=== PATIENT | male | born 1945 | race Caucasian/White ===

== ENCOUNTER 2016-09-19 06:46 | Day surgery (SDC) | payer BC ==
[~2016-09-19] VITALS: Ht 165.1 cm; Wt 101.0 kg
[2016-09-19] VITALS (19 sets, daily range): BP systolic 108–134; BP diastolic 62–81; PULSE 64–86; RESP 13–24; Ht 165.1 cm; Wt 101.0 kg
[~2016-09-19 06:46] MED LIST: ASPI-535 PO; METH-70 PO
[2016-09-19 07:49] LABS: ADD SCAN DIFF NO; BASOPHILS % 0.4 % (0.0-2.0); EOSINOPHILS # 0.2 10^3/ul (0.0-0.5); EOSINOPHILS % 2.3 % (0.0-7.0); HEMATOCRIT 42.4 % (42.0-52.0); LYMPHOCYTES # 2.1 10^3/ul (0.8-2.9); LYMPHOCYTES % 22.1 % (15.0-51.0); MONOCYTE # 0.7 10^3/ul (0.3-0.9); MONOCYTES % 6.8 % (0.0-11.0); NEUTROPHIL # 6.5 10^3/ul (1.6-7.5); PLATELET COUNT 231 10^3/UL (140-415); RED BLOOD COUNT 4.51 10^6/ul (4.70-6.10); RED CELL DISTRIBUTION WIDTH 12.5 % (11.5-14.5); WHITE BLOOD COUNT 9.6 10^3/ul (4.8-10.8)
[2016-09-19 07:57] LABS: POTASSIUM 4.6 mmol/L (3.5-5.1)
[2016-09-19 07:59] LABS: INR 0.98
[2016-09-19 08:00] LABS: PARTIAL THROMBOPLASTIN TIME 30.3 Sec (25.0-35.0)
--- NOTE | 2016-09-19 08:01 | RADRPT ---
PROCEDURE: XR Chest. CLINICAL INDICATION: Preoperative evaluation prior to general anesthesia TECHNIQUE: Portable single view of the chest COMPARISON: 05/02/2013 FINDINGS: Mild cardiomegaly and median sternotomy wires are seen. Aortic tortuosity and calcification is seen . There are increased markings at the lung bases, left greater than right, which partially silhouet janel the cardiac borders. The lungs are otherwise clear and no pleural effusion is seen. The large l eft effusion seen previously has resolved. IMPRESSION: Left greater than right basilar opacities which may be due to prominent epicardial fat pad or residu a from prior pulmonary process such as infection but acute infection or underlying lung lesion canno t be excluded. On the prior study the left lung base was obscured by pleural effusion and the abnor mality on the right was not evident. CT could be obtained for further evaluation and is suggested. Results were called to the preoperative nurse caring for the patient, Racheal, at 09/19/2016 7:59:26 AM RPTAT: [facility] Physician Chula Date Time Electronically viewed and signed by Physician Chula on 09/19/2016 08:01 TONI/
[2016-09-19 08:02] LABS: CREATININE 0.9 mg/dl (0.61-1.24)
[2016-09-19] MEDS ORDERED: HEPARIN 1000 UNITS/ML 10 ML INJ ONE (08:51)
[2016-09-19] MEDS ORDERED: MIDAZOLAM 1 MG/ML 2 ML INJ ONE (08:51)
[2016-09-19] MEDS ORDERED: HEPARIN 1000 UNITS/NS (A-LINE) 1,000 ML ONE (08:51)
[2016-09-19] MEDS ORDERED: NITROGLYCERIN (IC) 100 MCG/ML INJ ONE (08:51)
[2016-09-19] MEDS ORDERED: VERAPAMIL 5 MG INJ ONE (08:51)
[2016-09-19] MEDS ORDERED: IODIXANOL LOCM 100 ML BTL ONE (08:51)
[2016-09-19] MEDS ORDERED: FENTAnyl 50 MCG/ML VIAL ONE (08:51)
[2016-09-19] MEDS ORDERED: LIDOCAINE 1% (MDV) 20 ML INJ ONE (08:51)
[2016-09-19] MEDS ORDERED: FAMOTIDINE 20 MG TAB PO ONE (09:00)
[2016-09-19] MEDS ORDERED: SOD CHLORIDE 0.45% 1,000 ML IV ONE (09:00)
[2016-09-19] MEDS ORDERED: DIAZEPAM 5 MG TAB PO ONE (09:00)
[2016-09-19] MEDS ORDERED: DIPHENHYDRAMINE 50 MG CAP PO ONE (09:00)
[2016-09-19] MEDS ORDERED: GABAPENTIN (09:07)
[2016-09-19] MEDS ORDERED: LISI20TA11 PO (09:07)
[2016-09-19] MEDS ORDERED: AMIO200T2 PO (09:07)
[2016-09-19] MEDS ORDERED: CARV6.2579 PO (09:07)
[2016-09-19] MEDS ORDERED: ATOR20TA38 PO (09:07)
[2016-09-19] MEDS ORDERED: TAMS-14 PO (09:35)
[2016-09-19] MEDS ORDERED: SOD CHLORIDE 0.9% 1,000 ML IV SCH (10:56)
[2016-09-19] MEDS ORDERED: morphine 2 MG INJ IV PRN (11:00)
[2016-09-19] MEDS ORDERED: AL HYDROX/MG HYDROX/SIMETH 30 ML CUP PO PRN (11:00)
[2016-09-19] MEDS ORDERED: ACETAMINOPHEN 325 MG TAB PO PRN ×2 (11:00→11:30)
[2016-09-19] MEDS ORDERED: ONDANSETRON 4 MG INJ IV PRN (11:00)
--- NOTE | 2016-09-19 11:49 | CARRPT ---
DATE OF PROCEDURE: 09/19/2016 TYPE OF PROCEDURE: 1. Left heart catheterization. 2. Coronary angiography. 3. Bypass graft angiography including SUAREZ arterial grafts. 4. Left ventriculogram. 5. Femoral angiography. ATTENDING PHYSICIAN: Candi Will MD REFERRING PHYSICIAN: Dr. Elias Johnson and Dr. Giorgio Liu TYPE OF ANESTHESIA: Conscious and local. BRIEF HISTORY: Mr. Naylor is a 71-year-old male with history of hypertension, dyslipidemia, lily nary artery disease, status post coronary bypass grafting x3 in 2012, who initially presented with c omplaints of dyspnea on exertion and ____preoperative state. The patient underwent cardiac stress t est revealing a multivessel ischemia in anterior and inferior distributions. Given these findings, the patient referred for and presents today in order to undergo left heart catheterization to assess for the possibility of significant obstructive coronary artery disease lending to his symptoms of s hortness of breath and positive stress test findings. PROCEDURE: After informed consent was obtained, the patient was brought to the [facility] cardiac catheterization lab where his right groin was prepped and draped in the usual steri le fashion. Lidocaine 2% was infiltrated into the right groin in order to achieve adequate anesthes ia. Using modified Seldinger technique, the right femoral artery was cannulated and a 6-Gabonese milka rial sheath was placed. A 6-Gabonese JL4 catheter was used to cannulate the left main coronary ostium . With contrast injection, multiple views of the left coronary arterial system were obtained. The JL4 was removed over a guidewire and a JR4 was used to cannulate the right coronary arterial ostium with contrast injection, multiple views of the right coronary arterial system were obtained. JR4 wa s then used to subsequently cannulate a stump, presumably to the diagonal vessel and no other grafts could be identified. Subsequently, the JR was then used to cannulate the SUAREZ arterial graft after which with contrast injection, multiple views of the SUAREZ arterial graft were obtained. It was the n used to inject the patient's left subclavian to assess for any stenosis, there was not and removed . At this time, we attempted an LCD to further search for any unidentified grafts and could not fin d. This was moved and a pigtail catheter was then passed into the LV and left ventricular end-diast olic pressure was measured. LV gram was obtained. The pigtail catheter was then pulled back acros s the aortic valve, placed in the ascending aorta and ascending aortography was performed to furthe r identify any grafts which could not be found. Subsequently, at this time, the pigtail was removed and we tried a multipurpose to identify the graft unsuccessfully and once again the LCD, and at thi s time we were finally able to find a distal stump through a second graft. Subsequently, at this ti me, after discussion with the family, it was elected to terminate this procedure. The patient under went right femoral arterial angiography revealing the sheath to be well placed in the right common f emoral artery, but due to an ectatic vessel, no closure device was used, the sheath was removed, man ual pressure was held until optimal hemostasis was achieved. There were no noted complications. FINDINGS: 1. Coronary angiography. Left main short 4 mm with a distal 50% stenosis. Circumflex proximally i s a 2.5 mm vessel and has an early branching obtuse marginal. Thereafter, the circuit is 100% occlu ded and can be seen to appear ____ a rather sizeable circumflex distribution via left to left collat eral circulation from the obtuse marginal and from a sizeable diagonal which is widely patent. The LAD proximally is a 2.5 mm vessel and has an ostial 40% stenosis and then becomes 100% occluded shor tly after takeoff of the diagonal. The diagonal itself is widely patent with a 40 to 50% stenosis a t its mid portion. It covers a large territory and then gives left to left collateral circulation to the patient's circumflex grade I. There is additionally a second diagonal 2 mm vessel with a mid -body 40% stenosis. It covers a reasonable territory, as well as a mid-body a 50% to 60% stenosis. The right coronary artery proximally is a 3.5 mm vessel, ectatic vessel and its mid portion contain s a 20% stenosis dominant vessel and gives off PDA. It has sluggish SHANEL 1 flow subtotally occluded at the ostium and enhanced areas in the mid portion, which appear to be subtotally occluded diffuse ly. It is a very large posterolateral branch 3 mm vessel which additionally provides right to left collateral circulation for ____recapitulation of the mid circumflex grade I. Bypass graft angiography revealed the 2 stumps extending from the saphenous vein graft to diagonal, saphenous vein graft to obtuse marginal and a widely patent SUAREZ arterial graft with excellent flow providing excellent flow to the mid LAD with retrograde flow back to the mid and proximal portions o f the LAD and with no intervening stenosis thereafter to the graft insertion site. Subclavian angiography revealed no significant stenoses of the patient's subclavian vessel. Aortic root angiography revealed the patient's [place] left and right vessels and no other identified bypass graft. Left ventriculogram revealed a preserved left ventricular ejection fraction of 55%. Left ventricula r end diastolic pressure of 14 to 16. No significant aortic stenosis by gradient. TOTAL FLUOROSCOPY TIME: 19.3 minutes. TOTAL CONTRAST: 330 mL. IMPRESSION: 1. Multivessel obstructive coronary artery disease involving 100% occlusion in the patient's [place] circumflex, ____ includes patient's [place] LAD and a 99% subtotal occlusion of the patient's PEA di ffusely. 2. Widely patent left internal mammary artery arteriograph to the LAD with [id number] and right-t o-left grade I collateral circulation recapitulating the patient's circumflex vessels. RECOMMENDATIONS: In light of procedure and findings at this time would: 1. Maximize medical management. 2. Aggressive risk factor reduction. 3. The patient will be reasonable to proceed with surgery at this time for hernia repair and have d iscussed with family if patient continues to have symptoms thereafter, can attempt to probe the rupinder ent's somewhat diffuse disease PDA chronically occluded. Prior bypass surgery and/or possibly ____ the patient's chronic total occlusion of the circumflex. Dictated By: CANDI LAI/HUNG Conf#: [id number] DID#: [id number]
--- NOTE | 2016-09-19 13:45 | RADRPT ---
Vent Rate: 77 bpm RR Interval: 0 msec NV Interval: 176 msec QRS Duration: 78 msec QT Interval: 426 msec QTC Interval: 482 msec P-R-T [place]: 61 - 29 - 82 degrees Normal sinus rhythm Nonspecific T wave abnormality Prolonged QT Abnormal ECG Electronically Signed By: Chadd Flower [id number]
== END 2016-09-19 17:00 | disposition home or self-care (01) ==
LOC: SDS 06:46
PROVIDERS: ATTEND Internal Medicine
DX: I25.10 Atherosclerotic heart disease of native coronary artery without angina pectoris (principal); I10 Essential (primary) hypertension; E78.5 Hyperlipidemia, unspecified; Z95.1 Presence of aortocoronary bypass graft
CPT/HCPCS: 71010; 80048; 82962; 85025; 85610; 85730; 93005; 93459; C1887; C1894; J1644; J2250; J3010; Q9967; Z7610

== ENCOUNTER 2018-04-12 21:10 | Inpatient (IN) | END 2018-04-15 19:49 | disposition home or self-care (01) | DRG 282 ==

== ENCOUNTER 2018-09-17 11:00 | Observation (INO) | payer MEDICARE, BC ==
[~2018-09-17] VITALS: Ht 162.6 cm; Wt 96.8 kg
[~2018-09-17 11:00] MED LIST changes: +AMIO200T4 PO; -ASPI-535 PO; +ASPI-817 PO; +ATOR20TA38 PO; +CARV6.2579 PO; +CLOP75TA27 PO; +GABAPENTIN; +LISI-471 PO; -METH-70 PO; +TAMS-14 PO
[2018-09-17] MEDS ORDERED: SOD CHLORIDE 0.9% 1,000 ML IV STA (11:05)
--- NOTE | 2018-09-17 13:43 | ERD ---
ER Documentation Chief Complaint Chief Complaint syncopal episode x "10 minutes" as per family; now a/o x 4. HPI During the patient's encounter translation services were utilized Language: Aremenian Source: Family in person 73-year-old gentleman history of coronary disease and CABG who presents to the emergency room with an episode of syncope via EMS. Accu-Chek normal. It appears he was sitting down and slumped over. The family reports for approximately 10 minutes without seizure-like activity. The patient had a spontaneous resolution. ROS All systems reviewed and are negative except as per history of present illness. Medications Home Meds Reported Medications Clopidogrel Bisulfate (Clopidogrel) 75 Mg Tablet, 75 MG PO DAILY, #30 TAB 04/15/18 Aspirin* (Aspirin* EC) 81 Mg Tablet.dr, 81 MG PO DAILY, TAB 04/15/18 Tamsulosin Hcl* (Flomax*) 0.4 Mg Cap.er.24h, 0.4 MG PO DAILY, CAP 09/19/16 Carvedilol* (Carvedilol*) 6.25 Mg Tablet, 6.25 MG PO BID, #60 TAB 09/19/16 [Gabapentin] No Conflict Check, 300 09/19/16 Atorvastatin Calcium* (Atorvastatin Calcium*) 20 Mg Tablet, 20 MG PO QHS, #30 TAB 09/19/16 Lisinopril* (Lisinopril*) 20 Mg Tablet, 20 MG PO DAILY, #30 TAB 09/19/16 Amiodarone Hcl* (Amiodarone Hcl*) 200 Mg Tablet, 200 MG PO DAILY, #30 TAB 09/19/16 Allergies Allergies: Coded Allergies: No Known Allergy (Unverified , 04/25/13) PMhx/Soc History of Surgery: Yes (CABG 2012) Anesthesia Reaction: No Hx Neurological Disorder: Yes (NEUROPATHY) Hx Respiratory Disorders: Yes (PNA 2012) Hx Cardiac Disorders: Yes (HTN, HLD) Hx Psychiatric Problems: No Hx Miscellaneous Medical Probl: Yes (FORGETFUL THE LAST YEAR) Hx Alcohol Use: Yes (SOCIAL) Hx Substance Use: No Hx Tobacco Use: No FmHx Family History: No diabetes Physical Exam Vitals Vital Signs Date Temp Pulse Resp B/P (MAP) Pulse Ox O2 O2 Flow FiO2 Time Delivery Rate 09/17/18 98.4 67 16 97/67 (77) 100 11:19 Physical Exam General: Well developed, well nourished, no acute distress Head: Normocephalic, atraumatic. Eyes: Pupils equally reactive, EOM intact ENT: Moist mucous membranes Neck: Supple, no lymphadenopathy Respiratory: Lungs clear bilaterally, no distress Cardiovascular: RRR, no murmurs, rubs, or gallops Abdominal: Soft, non-tender, non-distended, no peritoneal signs : Deferred MSK: No edema, no unilateral swelling, 5/5 strength Neurologic: Alert and oriented, moving all extremities, normal speech, no focal weakness, no cerebellar signs Skin: No rash Psych: Normal mood Result Diagram: 09/17/18 1116 09/17/18 1116 Results 24 hrs Laboratory Tests Test 09/17/18 11:16 09/17/18 11:35 White Blood Count 10.0 10^3/ul Red Blood Count 4.34 10^6/ul Hemoglobin 13.4 g/dl Hematocrit 40.4 % Mean Corpuscular Volume 93.1 fl Mean Corpuscular Hemoglobin 30.9 pg Mean Corpuscular Hemoglobin Concent 33.2 g/dl Red Cell Distribution Width 12.7 % Platelet Count 195 10^3/UL Mean Platelet Volume 10.1 fl Immature Granulocytes % 0.300 % Neutrophils % 59.8 % Lymphocytes % 28.3 % Monocytes % 8.8 % Eosinophils % 2.2 % Basophils % 0.6 % Nucleated Red Blood Cells % 0.0 /100WBC Immature Granulocytes # 0.030 10^3/ul Neutrophils # 6.0 10^3/ul Lymphocytes # 2.8 10^3/ul Monocytes # 0.9 10^3/ul Eosinophils # 0.2 10^3/ul Basophils # 0.1 10^3/ul Nucleated Red Blood Cells # 0.0 10^3/ul Prothrombin Time 13.3 Sec Prothrombin Time Ratio 1.0 INR International Normalized Ratio 1.00 Activated Partial Thromboplast Time 28.1 Sec Sodium Level 140 mmol/L Potassium Level 4.5 mmol/L Chloride Level 108 mmol/L Carbon Dioxide Level 25 mmol/L Anion Gap 7 Blood Urea Nitrogen 15 mg/dl Creatinine 0.96 mg/dl Est Glomerular Filtrat Rate mL/min mL/min Glucose Level 133 mg/dl Calcium Level 8.8 mg/dl Magnesium Level 1.9 mg/dl Troponin I < 0.012 ng/ml Bedside Glucose 110 mg/dL Current Medications Medications Dose Sig/Dayna Start Time Status Last (Trade) Ordered Route PRN Stop Time Admin Dose Reason Admin Sodium 1,000 ml @ Q1H STAT 09/17/18 DC 09/17/18 Chloride 1,000 mls/hr IV 11:05 09/17/18 11:22 12:04 Ondansetron 4 mg ER BRIDGE 09/17/18 HCl (Zofran PRN IV 14:00 09/18/18 Inj) NAUSEA/VOMITI 13:59 NG 650 mg ER BRIDGE 09/17/18 Acetaminophen PRN PO 14:00 09/18/18 (Tylenol .MILD PAIN 13:59 Tab) 1-3 OR TEMP Procedures/MDM EKG, MONITORS, & DIAGNOSTIC IMAGING: EKG: I reviewed and interpreted a 12-lead EKG. Rhythm: Normal sinus rhythm ST Changes: Subtle ST depressions in V4 through V6 without reciprocal changes T waves: No contiguous T wave inversions Impression: Abnormal EKG Chest x-ray: I reviewed and interpreted a 1 view of the chest Mediastinum: No enlargement Cardiac silhouette: No cardiomegaly Airspace: Clear lung ramirez bilaterally without evidence of pneumothorax Bones: No evidence of fracture LAB INTERPRETATION: I reviewed the laboratory testing and it shows no evidence of acute process MEDICAL DECISION MAKING: Patient presents with a syncopal episode. Broad differential exists but given cardiac history concern for possible cardiac arrhythmia. Low concern for ACS. The patient does have an abnormal EKG. Patient will benefit from inpatient hospitalization and further observation given his risk profile. Patient has a much lower clinical concern for infectious process. The patient's blood pressure is borderline low but improved with IV fluids. No evidence of fever or elevated white count to suggest infectious process. No abdominal pain or back pain to suggest dissection or aneurysm. ER COURSE: * Blood pressure improved with IV fluids. Aspirin provided. The patient remai ns asymptomatic and using his cellular phone without difficulty. CONSULTATION: None DISPOSITION PLAN: Telemetry admission for management of chest pain to rule out acute coronary syndrome, serial enzymes, risk stratification and consideration of provocative testing CONSULTATION: Accepting care team and consultations: I discussed the current laboratory data, diagnostic imaging and emergency care provided. Admitting team: Dr. Liu Admitting team indication: Insurance directed Departure Diagnosis: Primary Impression: Syncope Syncope type: unspecified Qualified Codes: R55 - Syncope and collapse Additional Impression: History of coronary artery disease Condition: Stable CHOLO MAYFIELD MD Sep 17, 2018 13:43
[2018-09-17] MEDS ORDERED: ACETAMINOPHEN 325 MG TAB PO PRN (14:00)
[2018-09-17] MEDS ORDERED: ONDANSETRON 4 MG INJ IV PRN (14:00)
[2018-09-17] MEDS ORDERED: LISI40TA3 ORAL (14:15)
[2018-09-17] MEDS ORDERED: ISOS120T15 ORAL (14:15)
[2018-09-17] MEDS ORDERED: GABA300C16 ORAL (14:15)
[2018-09-17] MEDS ORDERED: ATOR20TA65 ORAL (14:15)
[2018-09-17] MEDS ORDERED: CARV12.579 ORAL (14:15)
[2018-09-17 15:14] VITALS: Ht 162.6 cm; Wt 96.8 kg
[2018-09-17 16:24] VITALS: PULSE 70
[2018-09-17 17:07] VITALS: BP 108/63; PULSE 68; RESP 22
[2018-09-17 18:20] VITALS: BP_SYST 118; BP_SYST 124; BP_SYST 133; BP_DIAS 55; BP_DIAS 60; BP_DIAS 66
[2018-09-17] MEDS ORDERED: SOD CHLORIDE 0.9% 500 ML IV ONE (19:30)
[2018-09-17 19:35] VITALS: BP 108/54; PULSE 72; RESP 22
[2018-09-17 20:00] VITALS: PULSE 79
[2018-09-17] MEDS: ATORVASTATIN 20 MG TAB PO SCH (20:46)
[2018-09-17] MEDS: TAMSULOSIN (SR) 0.4 MG CAP PO SCH (20:46)
[2018-09-17] MEDS: GABAPENTIN 300 MG CAP PO SCH (20:47)
[2018-09-17 23:48] VITALS: BP 111/55; PULSE 75; RESP 22
[2018-09-18] VITALS (12 sets, daily range): BP systolic 123–173; BP diastolic 60–95; PULSE 61–78; RESP 18–22
--- NOTE | 2018-09-18 00:11 | HP ---
DATE OF ADMISSION: 09/17/2018 CHIEF COMPLAINT: Presyncope. HISTORY OF PRESENT ILLNESS: The patient is a 73-year-old gentleman with history of coronary artery d isease, non-STEMI, status post PCI to PDA, hypertension, dyslipidemia. The patient has EF of 50% bas ed on echo done in 03/2018. The patient stated that he noted that his blood pressure was low and he felt slightly dizzy and possibly had presyncope. The patient is poor historian and in the ER, he rep orted that he actually had an episode of syncope and was brought in by EMS. As per ER record, the pa kin was sitting down and slumped over. There was no seizure-like activity. The patient returned t o his baseline quickly. However, the patient denies any actual loss of consciousness upon my questio hiram. The patient did not have any chest pain. No reported cough. No reported shortness of breath. No reported resting leg pain. No reported fever or chills. The patient denies cough. The patient denies vomiting or abdominal pain noted. The patient denies any fever or chills. Denies any focal weakness. REVIEW OF SYSTEMS: A total of 12 systems were reviewed. All pertinent positive and negative finding s have been described in HPI. Rest of review of systems were unremarkable. The patient was seen in the ER and underwent chest x-ray which was unremarkable. Upon arrival to the floor, I requested nursing staff to take vital signs. The patient was orthostatic. Vital signs in the ER at the time of presentation his BP was only 97/67. The patient has been on multiple antihyper tensive medications. The patient did not look septic. White count was normal. There was no left sh ift. The patient is being admitted for evaluation and management. PAST MEDICAL HISTORY: As stated above. PAST SURGICAL HISTORY: The patient is status post CABG in 2012. FAMILY HISTORY: Positive for heart disease. SOCIAL HISTORY: Ex-smoker and also drinks alcohol occasionally. PHYSICAL EXAMINATION: GENERAL: Revealed the patient to be awake, alert, fairly oriented. VITAL SIGNS: In the ER, blood pressure 97/67, pulse 67, respirations 16, temperature 98.4, O2 sat is 100% on room air. HEENT: Atraumatic, normocephalic. Conjunctivae and lids are normal. Oropharynx is clear. NECK: Supple. No mass, thyromegaly. No carotid bruit. CHEST: Fairly clear. CARDIOVASCULAR: S1, S2 normal. No murmur. ABDOMEN: Soft, nondistended, nontender. Bowel sounds are present. EXTREMITIES: No leg edema. NEUROLOGIC: The patient is awake, alert, fairly oriented with no gross focal deficit. LABORATORY DATA: Done in the ER, WBC 10, hemoglobin 13.4, platelet 195. Sodium 140, potassium 4.5, BUN 15, creatinine 0.9, glucose 133. Magnesium 1.9. Troponin negative. IMPRESSION: 1. Presyncope. 2. Coronary artery disease, status post PCI as described above. 3. History of hypertension, currently blood pressures are normal. 4. Dyslipidemia. 5. Benign prostatic hypertrophy. PLAN: The patient will be admitted under observation on telemetry floor. I asked the nurse to do or thostatic which was positive. The patient will be given 500 mL of NS bolus. In addition, the patien t will be continued on amiodarone which he was taking. Apparently, he had some history of arrhythmia , although details are not available. I will also add aspirin and Plavix. I am not sure why his med ication reconciliation did not indicate that he was on both antiplatelet agent since his PCI was back in 03/2018. Dyslipidemia, continue statin. Hypertension. The patient's blood pressure is low norm al and is orthostatic. We will reduce dose of Imdur, carvedilol and lisinopril. We will continue to monitor vital signs closely. We will obtain carotid Doppler. A cardiology consult from Dr. Will ' group will be obtained. The patient is status post CABG. The patient denied any anginal pain or d iaphoresis. We will continue to follow closely. Further recommendations will depend upon patient's hospital course. Dictated By: KAL GERMAN/HUNG Conf#: [id number] DID#: [id number]
[2018-09-18] MEDS ORDERED: LISINOPRIL 20 MG TAB PO SCH (09:00)
[2018-09-18] MEDS: CLOPIDOGREL 75 MG TAB PO SCH (09:02)
[2018-09-18] MEDS: GABAPENTIN 300 MG CAP PO SCH ×3 (09:03→20:04)
[2018-09-18] MEDS: ISOSORBIDE MONONITRATE(SR)30 MG TAB PO SCH (09:03)
[2018-09-18] MEDS: AMIODARONE 200 MG TAB PO SCH (09:03)
[2018-09-18] MEDS: ASPIRIN (EC) 81 MG TAB PO SCH (09:03)
--- NOTE | 2018-09-18 12:19 | PN ---
Date/Time of Note Date/Time of Note DATE: 09/18/18 TIME: 12:18 Assessment/Plan VTE Prophylaxis Risk score (from Nsg)>0 risk: 7 SCD applied (from Nsg): No Lines/Catheters IV Catheter Type (from Nrsg): Saline Lock Urinary Cath still in place: No Assessment/Plan Assessment/Plan 1. Presyncope. - per cardio - Carotid doppler is wnl - pending cardio eval 2. Coronary artery disease, status post PCI as described above. 3. History of hypertension, currently blood pressures are normal. 4. Dyslipidemia. 5. Benign prostatic hypertrophy. Result Diagram: 09/17/18 1116 09/17/18 1116 Subjective 24 Hr Interval Summary Free Text/Dictation - Carotid doppler is wnl Exam/Review of Systems Exam Vitals Vital Signs Date Temp Pulse Resp B/P (MAP) Pulse Ox O2 O2 Flow FiO2 Time Delivery Rate 09/18/18 71 12:05 09/18/18 98.0 18 143/75 98 11:12 (97) 09/17/18 Nasal 14:40 Cannula Intake and Output 09/17/18 09/17/18 09/18/18 1414:59 22:59 06:59 IntakeIntake Total 980 ml 300 ml BalanceBalance 980 ml 300 ml Medications Medication Current Medications Amiodarone HCl (Cordarone) 200 mg DAILY PO Last administered on 09/18/18at 09:03; Admin Dose 200 MG; Start 09/18/18 at 09:00 Atorvastatin Calcium (Lipitor) 40 mg HS PO Last administered on 09/17/18at 20:46; Admin Dose 40 MG; Start 09/17/18 at 21:00 Carvedilol (Coreg) 6.25 mg BID PO Last administered on 09/18/18at 09:04; Admin Dose 6.25 MG; Start 09/17/18 at 21:00 Gabapentin (Neurontin) 300 mg TID PO Last administered on 09/18/18 09:03; Admin Dose 300 MG; Start 09/17/18 at 21:00 Isosorbide Mononitrate (Imdur) 30 mg DAILY PO Last administered on 09/18/18 09:03; Admin Dose 30 MG; Start 09/18/18 at 09:00 Lisinopril (Zestril) 20 mg DAILY PO Last administered on 09/18/18 09:03; Admin Dose 20 MG; Start 09/18/18 at 09:00 Tamsulosin HCl (Flomax) 0.4 mg HS PO Last administered on 09/17/18 20:46; Admin Dose 0.4 MG; Start 09/17/18 at 21:00 Aspirin (Halfprin) 81 mg DAILY PO Last administered on 09/18/18 09:03; Admin Dose 81 MG; Start 09/18/18 at 09:00 Clopidogrel Bisulfate (plaVIX) 75 mg DAILY PO Last administered on 09/18/18 09:02; Admin Dose 75 MG; Start 09/18/18 at 09:00 SILVERIO YOUNG Sep 18, 2018 12:19
--- NOTE | 2018-09-18 13:14 | CONS ---
Consultation Date/Type/Reason Admit Date/Time Sep 17, 2018 at 13:36 Type of Consult Cardiology Date/Time of Note DATE: 09/18/18 TIME: 13:11 Hx of Present Illness 73 yo w/ HTN, CAD, h/o arrhythmia - very difficult historian - will plan to r/o NV and monitor - if no tachy-remy, will consider outpt re-stratification. # [id number] Past Medical History Home Meds Reported Medications Atorvastatin Calcium (Atorvastatin Calcium) 20 Mg Tablet, 1 TAB ORAL HS 09/17/18 Isosorbide Mononitrate* (Isosorbide Mononitrate*) 120 Mg Tab.sr.24h, 1 TAB ORAL DAILY 09/17/18 Carvedilol* (Carvedilol*) 12.5 Mg Tablet, 1 TAB ORAL BID 09/17/18 Gabapentin* (Gabapentin*) 300 Mg Capsule, 300 MG ORAL TID 09/17/18 Lisinopril* (Lisinopril*) 40 Mg Tablet, 1 TAB ORAL DAILY 09/17/18 Tamsulosin Hcl* (Flomax*) 0.4 Mg Cap.er.24h, 0.4 MG PO DAILY, CAP 09/19/16 Amiodarone Hcl* (Amiodarone Hcl*) 200 Mg Tablet, 200 MG PO DAILY, #30 TAB 09/19/16 Discontinued Reported Medications Clopidogrel Bisulfate (Clopidogrel) 75 Mg Tablet, 75 MG PO DAILY, #30 TAB 04/15/18 Aspirin* (Aspirin* EC) 81 Mg Tablet.dr, 81 MG PO DAILY, TAB 04/15/18 Carvedilol* (Carvedilol*) 6.25 Mg Tablet, 6.25 MG PO BID, #60 TAB 09/19/16 [Gabapentin] No Conflict Check, 300 09/19/16 Atorvastatin Calcium* (Atorvastatin Calcium*) 20 Mg Tablet, 20 MG PO QHS, #30 TAB 09/19/16 Lisinopril* (Lisinopril*) 20 Mg Tablet, 20 MG PO DAILY, #30 TAB 09/19/16 Medications Current Medications Amiodarone HCl (Cordarone) 200 mg DAILY PO Last administered on 09/18/18at 09:03; Admin Dose 200 MG; Start 09/18/18 at 09:00 Atorvastatin Calcium (Lipitor) 40 mg HS PO Last administered on 09/17/18at 20:46; Admin Dose 40 MG; Start 09/17/18 at 21:00 Carvedilol (Coreg) 6.25 mg BID PO Last administered on 09/18/18 09:04; Admin Dose 6.25 MG; Start 09/17/18 at 21:00 Gabapentin (Neurontin) 300 mg TID PO Last administered on 09/18/18 09:03; Admin Dose 300 MG; Start 09/17/18 at 21:00 Isosorbide Mononitrate (Imdur) 30 mg DAILY PO Last administered on 09/18/18 09:03; Admin Dose 30 MG; Start 09/18/18 at 09:00 Lisinopril (Zestril) 20 mg DAILY PO Last administered on 09/18/18 09:03; Admin Dose 20 MG; Start 09/18/18 at 09:00 Tamsulosin HCl (Flomax) 0.4 mg HS PO Last administered on 09/17/18 20:46; Admin Dose 0.4 MG; Start 09/17/18 at 21:00 Aspirin (Halfprin) 81 mg DAILY PO Last administered on 09/18/18 09:03; Admin Dose 81 MG; Start 09/18/18 at 09:00 Clopidogrel Bisulfate (plaVIX) 75 mg DAILY PO Last administered on 09/18/18 09:02; Admin Dose 75 MG; Start 09/18/18 at 09:00 Allergies: Coded Allergies: No Known Allergy (Unverified , 09/17/18) Past Surgical History Past Surgical Hx: other Social History Smoking Status: Former smoker Exam/Review of Systems Vital Signs Vitals Vital Signs Date Temp Pulse Resp B/P (MAP) Pulse Ox O2 O2 Flow FiO2 Time Delivery Rate 09/18/18 71 12:05 09/18/18 98.0 18 143/75 98 11:12 (97) 09/17/18 Nasal 14:40 Cannula Intake and Output 09/17/18 09/17/18 09/18/18 1515:00 23:00 07:00 IntakeIntake Total 980 ml 300 ml BalanceBalance 980 ml 300 ml Labs Result Diagram: 09/17/18 1116 09/17/18 1116 Medications Medications Current Medications Amiodarone HCl (Cordarone) 200 mg DAILY PO Last administered on 09/18/18 09:03; Admin Dose 200 MG; Start 09/18/18 at 09:00 Atorvastatin Calcium (Lipitor) 40 mg HS PO Last administered on 09/17/18 20:46; Admin Dose 40 MG; Start 09/17/18 at 21:00 Carvedilol (Coreg) 6.25 mg BID PO Last administered on 09/18/18 09:04; Admin Dose 6.25 MG; Start 09/17/18 at 21:00 Gabapentin (Neurontin) 300 mg TID PO Last administered on 09/18/18 09:03; Admin Dose 300 MG; Start 09/17/18 at 21:00 Isosorbide Mononitrate (Imdur) 30 mg DAILY PO Last administered on 09/18/18 09:03; Admin Dose 30 MG; Start 09/18/18 at 09:00 Lisinopril (Zestril) 20 mg DAILY PO Last administered on 09/18/18 09:03; Admin Dose 20 MG; Start 09/18/18 at 09:00 Tamsulosin HCl (Flomax) 0.4 mg HS PO Last administered on 09/17/18 20:46; Admin Dose 0.4 MG; Start 09/17/18 at 21:00 Aspirin (Halfprin) 81 mg DAILY PO Last administered on 09/18/18 09:03; Admin Dose 81 MG; Start 09/18/18 at 09:00 Clopidogrel Bisulfate (plaVIX) 75 mg DAILY PO Last administered on 09/18/18 09:02; Admin Dose 75 MG; Start 09/18/18 at 09:00 SRINIVASAN SERVIN MD Sep 18, 2018 13:14
--- NOTE | 2018-09-18 18:01 | CONS ---
DATE OF ADMISSION: 09/17/2018 DATE OF CONSULTATION: 09/18/2018 TYPE OF CONSULTATION: Cardiology. REFERRING PHYSICIAN: Kal Mccarthy MD. REASON FOR EVALUATION: Possible syncopal episode, coronary artery disease. HISTORY OF PRESENT ILLNESS: Mr. Naylor is a 73-year-old gentleman, not a very consistent historia n, who has a history of hypertension, dyslipidemia, history of coronary artery disease, history of 5 PCIs in 03/2018, history of tobacco use in the past as well as BPH, who comes to the hospital now for evaluation of possible presyncopal episode. The patient is a very difficult historian. When I aske d him if he passed out or blacked out, he said that he felt slightly dizzy but also said he had a cho ne sensation. The patient did not report any chest pain to me at this particular juncture but he d oes have a history of extensive coronary artery disease. I think, for now, it would be reasonable to monitor the patient for 24 hours. We are going to obtain another set of troponins. Given the fact that the patient is a fairly inconsistent historian, I think it might not be unreasonable to consider a risk stratification which could be done as an inpatient versus outpatient depending on the next tr oponin available. Also, the patient has a history of amiodarone taken. He is in sinus rhythm right now based on the EKG here. He is somewhat bradycardic intermittently but there is no tachybrady arrgianna grey noted. I think, for now, we are going to monitor the patient for 24 hours. If he completely rules out for acute myocardial infarction, I would advise outpatient risk stratification. PAST MEDICAL HISTORY: 1. Hypertension. 2. Dyslipidemia. 3. History of coronary artery disease. 4. History of PCI in 03/2018. 5. History of cardiac arrhythmia, on amiodarone. ALLERGIES: NO KNOWN DRUG ALLERGIES. SOCIAL HISTORY: The patient has a history of tobacco use but does not smoke anymore. Does not drink , does not use drugs. FAMILY HISTORY: Negative for sudden cardiac or premature coronary artery disease. MEDICATIONS: 1. Amiodarone 200 mg p.o. once a day. 2. Isosorbide mononitrate. 3. Lisinopril. 4. Aspirin. 5. Plavix 75 mg a day. 6. Atorvastatin. 7. Coreg 6.25 mg p.o. b.i.d. 8. Gabapentin. 9. Tamsulosin. 10. The patient is also on aspirin. REVIEW OF SYSTEMS: CONSTITUTIONAL: No fevers, no chills. Possible coughing episode versus presyncope. HEENT: No change in vision or hearing. CARDIAC: No chest pain reported now. RESPIRATORY: No shortness of breath. GASTROINTESTINAL: No nausea, vomiting, diarrhea, constipation. GENITOURINARY: No dysuria, hematuria. NEUROLOGIC: No focal neurologic deficits. HEMATOLOGIC: No easy bruising. PSYCHIATRIC: No known history of psychiatric illness. PHYSICAL EXAMINATION: VITAL SIGNS: Temperature is 98.0, heart rate 71, blood pressure 142/75. GENERAL: He is a well-nourished gentleman in no acute distress, alert and oriented x3, aware of his condition. HEENT: Head is normocephalic, atraumatic. Eyes anicteric. NECK: Supple. JVD 6 to 7 cm. No lymphadenopathy. HEART: Regular. PMI is nondisplaced. There is a midsternal scar, well healed. LUNGS: Coarse at the bases. ABDOMEN: Distended. Bowel sounds are present. There is no hepatosplenomegaly. GENITOURINARY: Intact. EXTREMITIES: No clubbing, cyanosis or edema. LABORATORY DATA: White blood cell count 10.2, hemoglobin 7.4, platelets 195. His INR is 1.0. Sodiu m 140, potassium 4.5, his BUN is 15, creatinine is 0.96. His troponin on 04/15/2018 was 4.4 before d ischarge. Now, his troponin is 0.012. ASSESSMENT AND PLAN: 1. Possible syncope. The patient is a very difficult historian. The etiology of syncope is not ashley ar to me and as the patient is in sinus rhythm at the moment, I think we will monitor the patient for now. We will consider further outpatient risk stratification. There is no tachycardia or bradyarrh ythmias, unchanged. 2. History of coronary artery disease. The patient had coronary artery bypass graft for history of coronary artery disease, history of drug-eluting stenting in 03/2018. Continue dual-antiplatelet the rapy with aspirin and Plavix. 3. Hypertension. Blood pressure well controlled now. Continue to adjust medications as needed. 4. Congestive heart failure. The patient has heart failure, diastolic heart failure most likely. C ontinue to keep the patient euvolemic. 5. Dyslipidemia. Statin to be implemented. 6. History of cardiac arrhythmia, etiology unclear. The patient is on amiodarone. We will continue for now at low dose. I would like to thank Dr. Mccarthy for referring this patient for my evaluation. Dictated By: SRINIVASAN SERVIN MD ML/NTS Conf#: [id number] DID#: [id number] CC: KAL MCCARTHY MD;*EndCC*
[2018-09-18] MEDS: TAMSULOSIN (SR) 0.4 MG CAP PO SCH (20:05)
[2018-09-18] MEDS: ATORVASTATIN 20 MG TAB PO SCH (20:05)
[2018-09-19] VITALS (7 sets, daily range): BP systolic 141–172; BP diastolic 65–90; PULSE 62–84; RESP 18–20
[2018-09-19] MEDS: GABAPENTIN 300 MG CAP PO SCH ×2 (09:00→13:30)
[2018-09-19] MEDS: ASPIRIN (EC) 81 MG TAB PO SCH (09:00)
[2018-09-19] MEDS: CLOPIDOGREL 75 MG TAB PO SCH (09:53)
[2018-09-19] MEDS: AMIODARONE 200 MG TAB PO SCH (09:53)
[2018-09-19] MEDS: ISOSORBIDE MONONITRATE(SR)30 MG TAB PO SCH (09:54)
--- NOTE | 2018-09-19 12:41 | CONS ---
Consult Date/Type/Reason Admit Date/Time Sep 17, 2018 at 13:36 Initial Consult Date Date/Time of Note DATE: 09/19/18 TIME: 12:37 Subjective NO acute events - pt stable - no CP now. Con't med rx - improved SOB now. ROS: No fever, no chills, no nausea, no vomiting, no diarrhea/constipation No recent weight changes No chest pain, no PND, no orthopnea - improved SOB No dizziness, blurred vision No thirst, no heat or cold intolerance Objective Vitals Vital Signs Date Temp Pulse Resp B/P (MAP) Pulse Ox O2 O2 Flow FiO2 Time Delivery Rate 09/19/18 72 12:29 09/19/18 98.3 18 149/80 99 11:34 (103) 09/18/18 Room Air 23:33 Intake and Output 09/18/18 09/18/18 09/19/18 1414:59 22:59 06:59 IntakeIntake Total 950 ml 300 ml BalanceBalance 950 ml 300 ml Exam General: WN/WD/NAD, AOx 3 HEENT: Unicetric/atraumatic/EOMI (follows commands) NECK: JVD elevated, no thyromegaly Lymph: no lymphadenopathy HEART: regular with no S3, II/ systolic murmur at apex, PMI L LUNGS: Coarse sounds ABD: soft, NT, ND, +BS : Intact Neuro: non focal SKIN: chronic changes EXT: trace edema Results/Medications Result Diagram: 09/17/18 1116 09/17/18 1116 Results 24 hrs Laboratory Tests Test 09/18/18 14:34 Troponin I < 0.012 Home Meds Reported Medications Atorvastatin Calcium (Atorvastatin Calcium) 20 Mg Tablet, 1 TAB ORAL HS 09/17/18 Isosorbide Mononitrate* (Isosorbide Mononitrate*) 120 Mg Tab.sr.24h, 1 TAB ORAL DAILY 09/17/18 Carvedilol* (Carvedilol*) 12.5 Mg Tablet, 1 TAB ORAL BID 09/17/18 Gabapentin* (Gabapentin*) 300 Mg Capsule, 300 MG ORAL TID 09/17/18 Lisinopril* (Lisinopril*) 40 Mg Tablet, 1 TAB ORAL DAILY 09/17/18 Tamsulosin Hcl* (Flomax*) 0.4 Mg Cap.er.24h, 0.4 MG PO DAILY, CAP 09/19/16 Amiodarone Hcl* (Amiodarone Hcl*) 200 Mg Tablet, 200 MG PO DAILY, #30 TAB 09/19/16 Discontinued Reported Medications Clopidogrel Bisulfate (Clopidogrel) 75 Mg Tablet, 75 MG PO DAILY, #30 TAB 04/15/18 Aspirin* (Aspirin* EC) 81 Mg Tablet.dr, 81 MG PO DAILY, TAB 04/15/18 Carvedilol* (Carvedilol*) 6.25 Mg Tablet, 6.25 MG PO BID, #60 TAB 09/19/16 [Gabapentin] No Conflict Check, 300 09/19/16 Atorvastatin Calcium* (Atorvastatin Calcium*) 20 Mg Tablet, 20 MG PO QHS, #30 TAB 09/19/16 Lisinopril* (Lisinopril*) 20 Mg Tablet, 20 MG PO DAILY, #30 TAB 09/19/16 Medications Current Medications Amiodarone HCl (Cordarone) 200 mg DAILY PO Last administered on 09/19/18 09:53; Admin Dose 200 MG; Start 09/18/18 at 09:00 Atorvastatin Calcium (Lipitor) 40 mg HS PO Last administered on 09/18/18 20:05; Admin Dose 40 MG; Start 09/17/18 at 21:00 Carvedilol (Coreg) 6.25 mg BID PO Last administered on 09/19/18 09:00; Admin Dose 6.25 MG; Start 09/17/18 at 21:00 Gabapentin (Neurontin) 300 mg TID PO Last administered on 09/19/18 09:00; Admin Dose 300 MG; Start 09/17/18 at 21:00 Isosorbide Mononitrate (Imdur) 30 mg DAILY PO Last administered on 09/19/18 09:54; Admin Dose 30 MG; Start 09/18/18 at 09:00 Tamsulosin HCl (Flomax) 0.4 mg HS PO Last administered on 09/18/18 20:05; Admin Dose 0.4 MG; Start 09/17/18 at 21:00 Aspirin (Halfprin) 81 mg DAILY PO Last administered on 09/19/18 09:00; Admin Dose 81 MG; Start 09/18/18 at 09:00 Clopidogrel Bisulfate (plaVIX) 75 mg DAILY PO Last administered on 3/3/19at 09:53; Admin Dose 75 MG; Start 09/18/18 at 09:00 Lisinopril (Zestril) 30 mg DAILY PO ; Start 09/20/18 at 09:00 Assessment/Plan Hospital Course (Demo Recall) 1. Possible syncope. The patient is a very difficult historian. The etiology of syncope is not clear to me and as the patient is in sinus rhythm at the moment, I think we will monitor the patient for now. We will consider further outpatient risk stratification. There is no tachycardia or bradyarrhythmias, unchanged. NO tachy-bardy on tele - will monitor clinically now. 2. History of coronary artery disease. The patient had coronary artery bypass graft for history of coronary artery disease, history of drug-eluting stenting in 03/2018. Continue dual-antiplatelet therapy with aspirin and Plavix. NO CP - r/o AR. 3. Hypertension. Blood pressure well controlled now. Continue to adjust medications as needed. Treated. 4. Congestive heart failure. The patient has heart failure, diastolic heart failure most likely. Continue to keep the patient euvolemic. Improved fluid satus. 5. Dyslipidemia. Statin to be implemented. 6. History of cardiac arrhythmia, etiology unclear. The patient is on amiodarone. We will continue for now at low dose. In sinus now. SRINIVASAN SERVIN MD Sep 19, 2018 12:40
--- NOTE | 2018-09-19 20:58 | DS ---
Date/Time of Note Date/Time of Note DATE: 09/19/18 TIME: 20:58 Discharge Summary Admission/Discharge Info Admit Date/Time Sep 17, 2018 at 13:36 Discharge Date/Time Sep 19, 2018 at 15:38 Patient Condition: Stable Home Meds Reported Medications Atorvastatin Calcium (Atorvastatin Calcium) 20 Mg Tablet, 1 TAB ORAL HS 09/17/18 Isosorbide Mononitrate* (Isosorbide Mononitrate*) 120 Mg Tab.sr.24h, 1 TAB ORAL DAILY 09/17/18 Carvedilol* (Carvedilol*) 12.5 Mg Tablet, 1 TAB ORAL BID 09/17/18 Gabapentin* (Gabapentin*) 300 Mg Capsule, 300 MG ORAL TID 09/17/18 Lisinopril* (Lisinopril*) 40 Mg Tablet, 1 TAB ORAL DAILY 09/17/18 Tamsulosin Hcl* (Flomax*) 0.4 Mg Cap.er.24h, 0.4 MG PO DAILY, CAP 09/19/16 Amiodarone Hcl* (Amiodarone Hcl*) 200 Mg Tablet, 200 MG PO DAILY, #30 TAB 09/19/16 Discontinued Reported Medications Clopidogrel Bisulfate (Clopidogrel) 75 Mg Tablet, 75 MG PO DAILY, #30 TAB 04/15/18 Aspirin* (Aspirin* EC) 81 Mg Tablet.dr, 81 MG PO DAILY, TAB 04/15/18 Carvedilol* (Carvedilol*) 6.25 Mg Tablet, 6.25 MG PO BID, #60 TAB 09/19/16 [Gabapentin] No Conflict Check, 300 09/19/16 Atorvastatin Calcium* (Atorvastatin Calcium*) 20 Mg Tablet, 20 MG PO QHS, #30 TAB 09/19/16 Lisinopril* (Lisinopril*) 20 Mg Tablet, 20 MG PO DAILY, #30 TAB 09/19/16 Primary Care Provider MD HANNAH Burr RANBIR Sep 19, 2018 20:58
[2018-09-20] MEDS ORDERED: LISINOPRIL 10 MG TAB PO SCH (09:00)
== END 2018-09-19 15:38 | disposition home or self-care (01) ==
LOC: E/R 11:00 → 6WM 13:36 → CANBEDREQ 20:09
PROVIDERS: ADMIT Internal Medicine; ATTEND Internal Medicine
DX: R55 Syncope and collapse (principal); I25.10 Atherosclerotic heart disease of native coronary artery without angina pectoris; Z95.1 Presence of aortocoronary bypass graft; I10 Essential (primary) hypertension; E78.5 Hyperlipidemia, unspecified; Z79.82 Long term (current) use of aspirin; N40.0 Benign prostatic hyperplasia without lower urinary tract symptoms; Z87.891 Personal history of nicotine dependence
CPT/HCPCS: 36415; 71045; 80048; 82962; 83735; 84484; 85025; 85610; 85730; 93005; 93880; 99285; G0378; J7030; J7040